=== PATIENT | female | born 1940 | race Caucasian/White ===

== ENCOUNTER → 2016-08-06 | Outpatient (CLI) | payer MEDICARE, BC ==
--- NOTE | 2016-08-06 11:19 | RAD ---
DATE: 08/06/2016. EXAM: DIGITAL SCREEN BILAT W/CAD HISTORY: Routine screening. COMPARISON: 03/22/2015. This study was interpreted with the benefit of Computerized Aided Detection (CAD). FINDINGS: 2-D digital mammography was performed bilaterally. Moderate parenchymal heterogeneity is noted. No dominant mass or malignant appearing microcalcifications are seen. There are scattered benign calcifications noted bilaterally. The axillae are unremarkable. IMPRESSION: Stable bilateral mammograms. No mammographic features suspicious for malignancy are identified. BI-RADS CATEGORY: 2 BENIGN FINDING(S) RECOMMENDED FOLLOW-UP: 12M 12 MONTH FOLLOW-UP PQRS compliance statement: Patient information was entered into a reminder system with a target due date for the next mammogram. Mammography is a sensitive method for finding small breast cancers, but it does not detect them all and is not a substitute for careful clinical examination. A negative mammogram does not negate a clinically suspicious finding and should not result in delay in biopsying a clinically suspicious abnormality. "Our facility is accredited by the [employer] Mammography [employer]."
== END | disposition home or self-care (01) ==
LOC: MAMMO 10:50
PROVIDERS: ATTEND Family Medicine
DX: Z12.31 Encounter for screening mammogram for malignant neoplasm of breast (principal)
CPT/HCPCS: G0202; 77067

== ENCOUNTER → 2018-01-28 | Outpatient (CLI) | payer MEDICARE, BC | END | disposition home or self-care (01) | LOC: MAMMO 09:48 | DX: Z12.31 Encounter for screening mammogram for malignant neoplasm of breast (principal) | CPT/HCPCS: 77063; 77067 ==

== ENCOUNTER → 2019-04-14 | Outpatient (CLI) | payer MEDICARE ==
--- NOTE | 2019-04-15 18:24 | RAD ---
DATE: 04/14/2019 EXAM: MAMMO LUIS SCREENING BILATERAL HISTORY: Routine screening COMPARISON: 03/22/2015, 08/06/2016, 01/28/2018 mammographic exams This study was interpreted with the benefit of Computerized Aided Detection (CAD). Breast Density: SCATTERED The breast parenchyma shows scattered fibroglandular densities. Breast parenchyma level B. FINDINGS: Benign calcifications are present. No suspicious calcifications. Small masses involving the left breast are stable. No new mass. IMPRESSION: Stable BI-RADS CATEGORY: 1 NEGATIVE RECOMMENDED FOLLOW-UP: 12M 12 MONTH FOLLOW-UP PQRS compliance statement: Patient information was entered into a reminder system with a target due date for the next mammogram. Mammography is a sensitive method for finding small breast cancers, but it does not detect them all and is not a substitute for careful clinical examination. A negative mammogram does not negate a clinically suspicious finding and should not result in delay in biopsying a clinically suspicious abnormality. "Our facility is accredited by the [employer] Mammography [employer]."
== END | disposition home or self-care (01) ==
LOC: MAMMO 10:23
PROVIDERS: ATTEND Family Medicine
DX: Z12.31 Encounter for screening mammogram for malignant neoplasm of breast (principal); N64.89 Other specified disorders of breast
CPT/HCPCS: 77063; 77067